=== PATIENT | male | born 1980 | race Caucasian/White ===

== ENCOUNTER 2018-10-05 07:42 | Day surgery (SDC) | payer OTHER, SELFPAY ==
[2018-10-05] VITALS (8 sets, daily range): BP systolic 112–153; BP diastolic 60–82; PULSE 67–80; RESP 16–18; TEMP 36.3–36.6; O2SAT 96–298; BMI 37.3
--- NOTE | 2018-10-05 08:38 | HMH.ANESCL ---
[facility] Anesthesia Checklist - Patient Identification Patient Identification: Arm Band, Verbal (Name & ) - Structural Data Admitted From: Home Planned Operative Procedure/s: Colonoscopy Consent for Planned Operative Procedure(s) Verified: Yes Verified Documents: Surgical Consent, History and Physical - NPO Status Verified Time NPO: 00:00 - Additional verifications Anesthesia Reactions: No - Airway Assessment C-Spine Mobility Assessed: Yes TMJ Mobility Assessed: Yes Dentition: Good Dentition - Neurological Assessment Level of Consciousness: Awake, Alert, Appropriate, Follows Commands Hx Seizures: No Numbness or tingling in extremities: No - Anesthesia Plan Anesthesia Risk discussed: Yes Anesthesia Plan: Verified ASA Class: III Anesthesia Type: MAC [facility] History I have reviewed the patient's past medical history: Yes Medical History: Reports:: Gastroesophageal Reflux Disease(GERD) Denies:: Diabetes Mellitus Type 1, Diabetes Mellitus Type 2, Internal Pacemaker, Lung Disease, Seizures *Have you ever received a pneumonia vaccine?: No (unknown) *Have you received a flu vaccine this season?: No (unknown) Comment:: obesity Other Surgeries: Yes: Bariatric Surgery. No: Pacemaker Amputation: No Fractures: No - *Social History Smoking Status: Current every day smoker Tobacco Type: cigarettes # Packs/Day (cigarettes): 1 *Occupational Status:: other (NA) *Travel in the last 8 weeks: None (unknown) Family Hx:: Other (NA)
--- NOTE | 2018-10-05 08:42 | HMH.PROC ---
[facility] Procedure Note Procedure Note:: Colonoscopy Procedure Report: Colonoscopy with cold biopsies Endoscopist: Blanco Xie II, MD Referring physician: Shravan Laurent MD Date of Procedure: October 05, 2018 Equipment: Olympus 180 variable stiffness pediatric colonoscope Sedation: MAC sedation Indication: Mr. Willis is a 37-year-old gentleman who states that a couple of weeks ago he developed cramps and diarrhea. This resolved but last he had more significant cramps and diarrhea with watery bowel movements. He had some gas and bloating. He went to [facility] and had a CT scan of the abdomen showing inflammation of the proximal right colon and terminal ileum. The patient reports no rectal bleeding or weight loss. He has noted a little mucus with his bowel movements. They did do stool testing showing no C. difficile and I am obtaining results to see if it was PCR testing for full panel of pathogens. The patient reports no family history of colitis, Crohn's disease or colon cancer. He did have C. difficile at the age of 12. He had a gastric sleeve in 2010 and had some postoperative infection. Procedure: Prior to the procedure, a history and physical exam was performed, and patient's medications and allergies were reviewed. The risks, benefits and alternatives of the sedation and procedure were discussed with the patient. All questions were answered and informed consent was obtained. The patient was brought to the procedure room. Patient identification and proposed procedure were verified by the physician and the nurse. The patient was placed in a left lateral decubitus position and the scope was passed under direct vision. Throughout the procedure, the patient's blood pressure, pulse, and oxygen saturations were monitored continuously. The colonoscopy was accomplished without difficulty. The patient tolerated the procedure well. Findings: On digital rectal examination there was normal rectal tone. There were no external hemorrhoids. The colonoscope was introduced through the anal canal to the rectum and advanced to the cecum. The ileocecal valve and appendiceal orifice were identified. The scope was advanced 10 to 15 cm into the ileum where there were aphthous ulcerations and erosions with some skip area and mucosal edema consistent with acute/chronic ileitis. Biopsies were obtained from the ileum. The scope was then withdrawn into the colon. There was an ulceration of the ileocecal valve. Cold biopsies were obtained from the ileocecal valve and separately from the right colon. There were scattered aphthous erosions and aphthous ulcerations in the cecum, ascending, transverse and portion of the descending. There was some background very mild mucosal erythema with some skip areas. Most of the sigmoid and rectum had normal colonic mucosa with normal vascular pattern. Upon retroflexion within the rectum there were grade 1 internal hemorrhoids.The preparation was excellent throughout with Norton Preparation Score of 9. The cecal time was 15 minutes. Impression: 1. Acute/chronic ileocolitis consistent with Crohn's ileocolitis (moderate) Plan: I will follow up the biopsies. I will place the patient on a prednisone taper and began mesalamine plus Flagyl. I would like to obtain PCR testing results to exclude a pathogen. Certain microbial pathogens can mimic Crohn's disease. I will also obtain IBD serologies. The patient will follow-up in the office in the next 2 weeks for further discussion.
[2018-10-05 10:39] LABS: C-Reactive Protein 2.9 mg/L (0.0-0.9)
[2018-10-05 10:58] LABS: Ferritin 101 ng/mL (8-388)
--- NOTE | 2018-10-05 14:52 | PC.NURSE ---
lab at bedside to draw labwork per
[2018-10-07 06:48] LABS: Iron 71 ug/dL (38-169); UIBC 239 ug/dL (111-343)
[2018-10-07 21:41] LABS: Vitamin B12 428 pg/mL (232-1245); Vitamin D 25 Hydroxy 17.2 ng/mL (30.0-100.0)
[2018-10-07 21:44] LABS: Iron Saturation 23 % (15-55)
[2018-10-08 18:11] LABS: Saccharomyces cerevisiae, IgA <20.0 Units (0.0-24.9); Saccharomyces cerevisiae, IgG <20.0 Units (0.0-24.9)
== END 2018-10-05 10:28 | disposition home or self-care (01) ==
LOC: OUTP 07:46
PROVIDERS: PCP Family Medicine; Visit Provider Internal Medicine Gastroenterology
PROC: 0DJD8ZZ Inspection of Lower Intestinal Tract, Via Natural or Artificial Opening Endoscopic (ICD-10-PCS; CPT 45378; principal; 2018-10-05 08:30)
DX: Z98.84 Bariatric surgery status; K50.00 Crohn's disease of small intestine without complications
CPT/HCPCS: 45380; 36415; 82607; 82652; 82728; 83540; 83550; 86140; 86256; 86671

== ENCOUNTER → 2022-07-01 11:09 | Outpatient (CLI) | payer OTHER, SELFPAY | PROVIDERS: PCP Family Medicine; Visit Provider Family Medicine | DX: G47.33 Obstructive sleep apnea (adult) (pediatric) (principal); R06.83 Snoring | CPT/HCPCS: 95806 ==